=== PATIENT | male | born 1950 | race Caucasian/White ===

== ENCOUNTER 2017-06-07 11:10 | Day surgery (SDC) | payer OTHER ==
[2017-06-07] MEDS ORDERED: ASPIRIN81 M2 PO (11:39)
[2017-06-07] MEDS ORDERED: TYLENOL REGULA325 MG PO (11:39)
[2017-06-07 11:48] LABS: HEMATOCRIT 44.9 % (38.0-50.0); MCH 30.3 PG (29.0-34.0); MCV 86.5 FL (86-99); RBC DIS.WIDTH-CV 12.2 % (11.8-14.6); RBC DIS.WIDTH-SD 38.7 % (39-53); RED BLOOD COUNT 5.19 M/uL (4.00-5.50); WHITE BLOOD COUNT 6.1 K/uL (4.1-10.2)
[2017-06-07 12:02] LABS: INTER. NORMALIZED RATIO 1.3; PROTHROMBIN TIME 14.9 SEC (10.2-12.9)
[2017-06-07 12:16] LABS: ANION GAP 11 MEQ/L (2-14); CHLORIDE 101 MEQ/L (99-109); GFR ESTIMATE (CALCULATED) > 59 mL/min/ (58.99-99999); GLUCOSE 105 mg/dL (70-99); POTASSIUM 4.3 MEQ/L (3.7-5.4); SAMPLE HEMOLYSIS CHECK 0; SAMPLE ICTERIC CHECK 0; SAMPLE LIPEMIA CHECK 0; SODIUM 138 MEQ/L (136-147); UREA NITROGEN (BUN) 19 mg/dL (9-23)
[2017-06-07 12:45] LABS: MEAN PLAT.VOLUME 10.8 uM^3 (9.0-12.4); PLAT.SUFFICIENCY ADEQUATE; PLATELET COUNT 237 K/uL (156-360)
== END 2017-06-07 17:20 | disposition short-term general hospital (02) ==
LOC: CATH 11:10
PROVIDERS: Internal Medicine Cardiovascular Disease
DX: I25.110 Atherosclerotic heart disease of native coronary artery with unstable angina pectoris (principal); E78.5 Hyperlipidemia, unspecified; M19.90 Unspecified osteoarthritis, unspecified site
CPT/HCPCS: 80048; 85027; 85347; 85610; 93005; C1769; C1887; J1644; J2250; J3010; J7040